=== PATIENT | female | born 1980 | race African-American/Black ===

== ENCOUNTER 2017-12-02 08:38 | Emergency (ER) | payer MEDICAID ==
[~2017-12-02] VITALS: Ht 152.4 cm; Wt 72.7 kg
[2017-12-02 08:55] VITALS: Ht 152.4 cm; Wt 72.7 kg
[2017-12-02 09:23] LABS: BASOPHILS 0.3 % (0-2); EOSINOPHILS 0.9 % (0-7); HEMATOCRIT 36.8 % (36.0-48.0); HEMOGLOBIN 12.2 g/dL (12-16); IMMATURE GRANULOCYTES 0.3 % (0-5); LYMPHOCYTES 34.9 % (15-50); MCH 28.5 pg (26.0-34.0); MCHC 33.2 g/dL (31.0-37.0); MEAN PLATELET VOLUME 8.9 fL (7.4-10.4); MONOCYTES 15.1 % (2-11); NEUTROPHILS 48.5 % (40-80); PLATELET COUNT 273 10x3/uL (130-400); RBC 4.28 10x6/uL (4.00-5.40); RDW 12.8 % (11.5-14.5); WBC 3.5 10x3/uL (4.8-10.8)
[2017-12-02 09:46] LABS: HCG URINE NEGATIVE (NEGATIVE)
[2017-12-02 09:49] LABS: APPEARANCE HAZY (CLEAR); BACTERIA MODERATE /hpf (NONE SEEN); BILIRUBIN NEGATIVE (NEGATIVE); COLOR YELLOW (YELLOW); EPITHELIAL CELLS 0-5 /hpf (0-5); GLUCOSE NEGATIVE (NEGATIVE); KETONE NEGATIVE (NEGATIVE); NITRITE NEGATIVE (NEGATIVE); PROTEIN NEGATIVE (NEGATIVE); RED CELLS - URINE 0-5 /hpf (0-5); UROBILINOGEN NORMAL (NORMAL); WHITE CELLS - URINE 0-5 /hpf (0-5)
[2017-12-02 09:51] LABS: AMYLASE - SERUM 79 U/L (25-115); CALC OSMOLALITY 275 mosm/kg (275-300); CHLORIDE - SERUM 105 mmol/L (98-107); CREATININE - SERUM 0.7 mg/dL (0.6-1.3); GLUCOSE 99 mg/dL (74-106); LIPASE 105 U/L (73-393); POTASSIUM - SERUM 3.8 mmol/L (3.5-5.1); SODIUM 138 mmol/L (136-145); UREA NITROGEN 13 mg/dL (7-18); eGFR NON AFRICAN AMERICAN > 90 mL/min (90-120)
[2017-12-02] MEDS ORDERED: HYDROCODON-ACE1 EAC7 PO (13:42)
[2017-12-02 14:16] VITALS: BP 111/70
== END 2017-12-02 14:15 | disposition home or self-care (01) ==
LOC: EDBD 08:38 → D.ER 08:38
PROVIDERS: Family Medicine
DX: N83.201 Unspecified ovarian cyst, right side (principal); R11.0 Nausea; F17.200 Nicotine dependence, unspecified, uncomplicated